=== PATIENT | male | born 1980 | race Hispanic/Latino ===

== ENCOUNTER → 2023-10-01 12:00 | Outpatient (REF) | payer OTHER, SELFPAY ==
[2023-10-01 12:39] LABS: Urine Albumin 2+ (Neg - Trace); Urine Bilirubin 1+ (Negative); Urine Character Clear (Clear); Urine Color Yellow; Urine Glucose Negative (Negative); Urine Ketone Trace (Negative); Urine Leukocyte Trace (Negative); Urine Nitrite Negative (Negative); Urine Occult Blood Negative (Negative); Urine Specific Gravity 1.015 (<1.030); Urine Urobilinogen 1+ (Neg - 1+)
[2023-10-01 12:40] LABS: % Basophils 0.5 % (0-2); % Eosinophils 2.2 % (0-6); % Immature Granulocytes 0.3 % (0-0.5); % Lymphocytes 21.6 % (20.5-51.1); % Monocytes 8.3 % (1.7-9.3); % Neutrophils 67.1 % (42.2-75.2); Absolute Eosinophils 0.1 10^3/uL (0-0.7); Absolute Lymphocytes 1.3 10^3/uL (1.2-3.4); Absolute Monocytes 0.5 10^3/uL (0.1-0.6); Hemoglobin 16.3 g/dL (13.0-18.0); Mean Corp Hgb Conc. 34.7 g/dL (33.0-37.0); Mean Corpuscular Hgb 30.4 pg (27.0-31.0); Mean Corpuscular Volume 87.5 fL (80.0-94.0); Nucleated Red Blood Cells % 0 % (-); Platelet Count 327 10^3/uL (130-400); Red Blood Cell Count 5.37 10^6/uL (4.70-6.10); Red Cell Dist. Width 12.1 % (11.5-14.5); White Blood Cell Count 5.9 10^3/uL (4.8-10.8)
[2023-10-01 12:50] LABS: Urine Mucus Few; Urine Red Blood Cell 0-2 /HPF (0-2); Urine White Cell 0-2 /HPF (0-5)
[2023-10-01 12:51] LABS: Erythrocyte Sed Rate 7 mm/hour (0-20)
[2023-10-01 13:24] LABS: ALT (SGPT) 26 U/L (0-50); AST (SGOT) 31 U/L (17-59); Albumin 3.9 g/dl (3.5-5.0); Alkaline Phosphatase 70 U/L (38-126); Blood Urea Nitrogen 22 mg/dl (9-20); Calcium 9.2 mg/dl (8.4-10.2); Carbon Dioxide 30 mmol/L (22-30); Chloride 105 mmol/L (98-107); Glucose 98 mg/dl (70-99); Potassium 4.6 mmol/L (3.5-5.1); Sodium 138 mmol/L (135-145); Total Bilirubin 0.8 mg/dl (0.2-1.3); Total Protein 6.9 g/dl (6.3-8.2); eGFR > 60.00
[2023-10-01 13:26] LABS: C-Reactive Protein < 5.00 mg/L (0.0-10.00)
[2023-10-01 13:52] LABS: Urine Protein 157 mg/dl
[2023-10-01 15:12] LABS: Protein/creatinine Ratio 0.3
[2023-10-03 00:34] LABS: Complement C3 83 mg/dl (88-165)
[2023-10-04 01:06] LABS: ds-DNA Ab, IgG Reflex To Titer 190 IU (0-24)
== END ==
LOC: CLINIC 12:00
PROVIDERS: ATTENDING PHYSICIAN Internal Medicine Rheumatology
DX: M32.9 Systemic lupus erythematosus, unspecified (principal)
CPT/HCPCS: 36415; 80053; 81003; 81015; 82570; 84156; 85025; 85652; 86140; 86160; 86225; 86256

== ENCOUNTER → 2023-12-31 07:52 | Outpatient (REF) | payer OTHER, SELFPAY ==
[2023-12-31 08:44] LABS: Urine Albumin 1+ (Neg - Trace); Urine Bilirubin Negative (Negative); Urine Character Clear (Clear); Urine Color Yellow; Urine Glucose Negative (Negative); Urine Ketone Negative (Negative); Urine Leukocyte Negative (Negative); Urine Nitrite Negative (Negative); Urine Occult Blood 1+ (Negative); Urine Specific Gravity 1.015 (<1.030); Urine Urobilinogen Negative (Neg - 1+)
[2023-12-31 08:51] LABS: % Basophils 0.4 % (0-2); % Eosinophils 2.5 % (0-6); % Immature Granulocytes 0.2 % (0-0.5); % Lymphocytes 26.5 % (20.5-51.1); % Monocytes 9.9 % (1.7-9.3); % Neutrophils 60.5 % (42.2-75.2); Absolute Eosinophils 0.1 10^3/uL (0-0.7); Absolute Lymphocytes 1.3 10^3/uL (1.2-3.4); Absolute Monocytes 0.5 10^3/uL (0.1-0.6); Absolute Neutrophils 2.9 10^3/uL (1.4-6.5); Hematocrit 45.5 % (39.0-52.0); Hemoglobin 15.6 g/dL (13.0-18.0); Mean Corp Hgb Conc. 34.3 g/dL (33.0-37.0); Mean Corpuscular Hgb 29.9 pg (27.0-31.0); Mean Corpuscular Volume 87.3 fL (80.0-94.0); Mean Platelet Volume 11.1 fL (7.4-10.4); Nucleated Red Blood Cells % 0 % (-); Platelet Count 204 10^3/uL (130-400); Red Blood Cell Count 5.21 10^6/uL (4.70-6.10); Red Cell Dist. Width 13.1 % (11.5-14.5); White Blood Cell Count 4.8 10^3/uL (4.8-10.8)
[2023-12-31 09:00] LABS: Erythrocyte Sed Rate 10 mm/hour (0-20)
[2023-12-31 09:05] LABS: ALT (SGPT) 21 U/L (0-50); AST (SGOT) 27 U/L (17-59); Albumin 3.9 g/dl (3.5-5.0); Alkaline Phosphatase 61 U/L (38-126); Blood Urea Nitrogen 25 mg/dl (9-20); Calcium 9.1 mg/dl (8.4-10.2); Carbon Dioxide 32 mmol/L (22-30); Chloride 105 mmol/L (98-107); Glucose 103 mg/dl (70-99); Potassium 4.5 mmol/L (3.5-5.1); Sodium 142 mmol/L (135-145); Total Bilirubin 0.7 mg/dl (0.2-1.3); Total Protein 6.7 g/dl (6.3-8.2); eGFR > 60.00
[2023-12-31 09:16] LABS: Urine Bacteria Few (Negative); Urine Squamous Cell 0-2 /LPF (Few)
[2023-12-31 09:17] LABS: Urine Red Blood Cell 0-2 /HPF (0-2); Urine White Cell 0-2 /HPF (0-5)
[2023-12-31 09:25] LABS: C-Reactive Protein < 5.00 mg/L (0.0-10.00)
[2023-12-31 09:41] LABS: Glycohemoglobin (HgbA1c) 5.3 % (4.0-5.6)
[2023-12-31 09:42] LABS: Vitamin D, 25-OH*** 23.2 ng/mL (30-80)
[2023-12-31 18:29] LABS: Protein/creatinine Ratio 0.5; Urine Protein 111 mg/dl
[2024-01-01 23:29] LABS: Complement C3 80 mg/dl (88-165)
== END ==
LOC: CLINIC 07:52
PROVIDERS: ATTENDING PHYSICIAN Nurse Practitioner Adult Health; FAMILY PHYSICIAN Internal Medicine Cardiovascular Disease
DX: M32.9 Systemic lupus erythematosus, unspecified (principal); E55.9 Vitamin D deficiency, unspecified; K76.0 Fatty (change of) liver, not elsewhere classified
CPT/HCPCS: 36415; 80053; 81003; 81015; 82306; 82570; 83036; 84156; 85025; 85652; 86140; 86160

== ENCOUNTER → 2024-03-31 11:44 | Outpatient (REF) | payer OTHER, SELFPAY ==
[2024-03-31 12:49] LABS: % Basophils 0.7 % (0-2); % Immature Granulocytes 0.4 % (0-0.5); % Lymphocytes 26.5 % (20.5-51.1); % Monocytes 9.6 % (1.7-9.3); % Neutrophils 60.8 % (42.2-75.2); Absolute Eosinophils 0.1 10^3/uL (0-0.7); Absolute Lymphocytes 1.2 10^3/uL (1.2-3.4); Absolute Monocytes 0.4 10^3/uL (0.1-0.6); Absolute Neutrophils 2.8 10^3/uL (1.4-6.5); Hematocrit 45.5 % (39.0-52.0); Hemoglobin 15.5 g/dL (13.0-18.0); Mean Corp Hgb Conc. 34.1 g/dL (33.0-37.0); Mean Corpuscular Hgb 29.8 pg (27.0-31.0); Mean Corpuscular Volume 87.3 fL (80.0-94.0); Nucleated Red Blood Cells % 0 % (-); Platelet Count 234 10^3/uL (130-400); Red Blood Cell Count 5.21 10^6/uL (4.70-6.10); Red Cell Dist. Width 13.2 % (11.5-14.5); White Blood Cell Count 4.6 10^3/uL (4.8-10.8)
[2024-03-31 13:21] LABS: Urine Albumin 1+ (Neg - Trace); Urine Bilirubin 1+ (Negative); Urine Character Clear (Clear); Urine Color Yellow; Urine Glucose Negative (Negative); Urine Ketone Trace (Negative); Urine Leukocyte Negative (Negative); Urine Nitrite Negative (Negative); Urine Occult Blood Negative (Negative); Urine Urobilinogen 1+ (Neg - 1+); Urine pH 6.5 (5.0-9.0)
[2024-03-31 13:29] LABS: Urine Mucus Few; Urine Squamous Cell 0-2 /LPF (Few)
[2024-03-31 13:30] LABS: Urine Bacteria Few (Negative); Urine Red Blood Cell 0-2 /HPF (0-2); Urine White Cell 0-2 /HPF (0-5)
[2024-03-31 13:35] LABS: C-Reactive Protein < 5.00 mg/L (0.0-10.00)
[2024-03-31 13:51] LABS: Vitamin D, 25-OH*** 23.7 ng/mL (30-80)
[2024-03-31 14:01] LABS: Erythrocyte Sed Rate 16 mm/hour (0-20)
[2024-03-31 15:04] LABS: Urine Protein 103 mg/dl
[2024-03-31 15:20] LABS: Protein/creatinine Ratio 0.2
[2024-03-31 15:28] LABS: ALT (SGPT) 23 U/L (0-50); AST (SGOT) 31 U/L (17-59); Albumin 4.6 g/dl (3.5-5.0); Alkaline Phosphatase 68 U/L (38-126); Blood Urea Nitrogen 20 mg/dl (9-20); Carbon Dioxide 28 mmol/L (22-30); Chloride 105 mmol/L (98-107); Glucose 95 mg/dl (70-99); Potassium 4.6 mmol/L (3.5-5.1); Sodium 143 mmol/L (135-145); Total Protein 7.2 g/dl (6.3-8.2); eGFR > 60.00
[2024-04-01 10:58] LABS: Complement C3 86 mg/dl (88-165)
== END ==
LOC: CLINIC 11:44
PROVIDERS: ATTENDING PHYSICIAN Internal Medicine Rheumatology; FAMILY PHYSICIAN Nurse Practitioner Adult Health
DX: M32.9 Systemic lupus erythematosus, unspecified (principal); E55.9 Vitamin D deficiency, unspecified; R31.9 Hematuria, unspecified
CPT/HCPCS: 36415; 80053; 81003; 81015; 82306; 82570; 84156; 85025; 85652; 86140; 86160

== ENCOUNTER → 2024-07-28 10:21 | Outpatient (REF) | payer OTHER, SELFPAY ==
[2024-07-28 11:25] LABS: Urine Albumin 2+ (Neg - Trace); Urine Bilirubin Negative (Negative); Urine Character Clear (Clear); Urine Color Yellow; Urine Glucose Negative (Negative); Urine Ketone Negative (Negative); Urine Leukocyte Negative (Negative); Urine Nitrite Negative (Negative); Urine Occult Blood 1+ (Negative); Urine Specific Gravity 1.025 (<1.030); Urine Urobilinogen Negative (Neg - 1+)
[2024-07-28 11:28] LABS: % Basophils 0.5 % (0-2); % Immature Granulocytes 0.3 % (0-0.5); % Lymphocytes 16.2 % (20.5-51.1); % Monocytes 11.1 % (1.7-9.3); % Neutrophils 68.9 % (42.2-75.2); Absolute Eosinophils 0.2 10^3/uL (0-0.7); Absolute Monocytes 0.7 10^3/uL (0.1-0.6); Absolute Neutrophils 4.3 10^3/uL (1.4-6.5); Hematocrit 45.3 % (39.0-52.0); Hemoglobin 15.4 g/dL (13.0-18.0); Mean Corpuscular Hgb 30.2 pg (27.0-31.0); Mean Corpuscular Volume 88.8 fL (80.0-94.0); Mean Platelet Volume 10.4 fL (7.4-10.4); Nucleated Red Blood Cells % 0 % (-); Platelet Count 219 10^3/uL (130-400); Red Cell Dist. Width 12.8 % (11.5-14.5); White Blood Cell Count 6.2 10^3/uL (4.8-10.8)
[2024-07-28 11:42] LABS: ALT (SGPT) 28 U/L (0-50); AST (SGOT) 33 U/L (17-59); Albumin 4.2 g/dl (3.5-5.0); Alkaline Phosphatase 64 U/L (38-126); Blood Urea Nitrogen 26 mg/dl (9-20); Calcium 8.8 mg/dl (8.4-10.2); Carbon Dioxide 30 mmol/L (22-30); Chloride 102 mmol/L (98-107); Glucose 101 mg/dl (70-99); Potassium 4.5 mmol/L (3.5-5.1); Sodium 139 mmol/L (135-145); Total Bilirubin 0.6 mg/dl (0.2-1.3); eGFR > 60.00
[2024-07-28 11:45] LABS: Urine Mucus Few
[2024-07-28 11:46] LABS: Urine Bacteria Few (Negative); Urine Red Blood Cell 0-2 /HPF (0-2); Urine Squamous Cell 0-2 /LPF (Few); Urine White Cell 0-2 /HPF (0-5)
[2024-07-28 11:58] LABS: Vitamin D, 25-OH*** 17.7 ng/mL (30-80)
[2024-07-28 12:19] LABS: Erythrocyte Sed Rate 15 mm/hour (0-20)
[2024-07-28 12:22] LABS: Protein/creatinine Ratio 1.2; Urine Protein 323 mg/dl
[2024-07-29 23:21] LABS: Complement C3 88 mg/dl (88-165)
[2024-07-31 00:31] LABS: ds-DNA Ab, IgG Reflex To Titer 137 IU (0-24)
== END ==
LOC: CLINIC 10:21
PROVIDERS: ATTENDING PHYSICIAN Nurse Practitioner Adult Health; REFERRING PHYSICIAN Internal Medicine Rheumatology
DX: E55.9 Vitamin D deficiency, unspecified (principal); M32.9 Systemic lupus erythematosus, unspecified
CPT/HCPCS: 36415; 80053; 81003; 81015; 82306; 82570; 84156; 85025; 85652; 86140; 86160; 86225

== ENCOUNTER → 2024-08-10 14:24 | Outpatient (REF) | payer OTHER, SELFPAY | LOC: CLINIC 14:24 | PROVIDERS: ATTENDING PHYSICIAN Nurse Practitioner Adult Health | DX: R31.9 Hematuria, unspecified (principal) | CPT/HCPCS: 76770 ==

== ENCOUNTER → 2024-09-28 13:37 | Outpatient (REF) | payer OTHER, SELFPAY | LOC: HWLAB 13:37 | PROVIDERS: ATTENDING PHYSICIAN Nurse Practitioner Adult Health | DX: R31.9 Hematuria, unspecified (principal) | CPT/HCPCS: 88112 ==

== ENCOUNTER → 2024-10-26 13:24 | Outpatient (REF) | payer OTHER, SELFPAY ==
[2024-10-26 15:02] LABS: Vitamin D, 25-OH*** 37.4 ng/mL (30-80)
== END ==
LOC: CLINIC 13:24
PROVIDERS: ATTENDING PHYSICIAN Nurse Practitioner Adult Health
DX: E55.9 Vitamin D deficiency, unspecified (principal); Z12.11 Encounter for screening for malignant neoplasm of colon
CPT/HCPCS: 36415; 82306; 83520

== ENCOUNTER → 2025-03-01 09:58 | Outpatient (REF) | payer OTHER, SELFPAY ==
[2025-03-01 12:53] LABS: ALT (SGPT) 29 U/L (0-50); AST (SGOT) 30 U/L (17-59); Albumin 4.2 g/dl (3.5-5.0); Alkaline Phosphatase 64 U/L (38-126); Blood Urea Nitrogen 21 mg/dl (9-20); Calcium 9.3 mg/dl (8.4-10.2); Carbon Dioxide 29 mmol/L (22-30); Chloride 105 mmol/L (98-107); Glucose 96 mg/dl (70-99); HDL Cholesterol 66 mg/dl; LDL Cholesterol, Calculated 138 mg/dl; Potassium 4.9 mmol/L (3.5-5.1); Sodium 139 mmol/L (135-145); Total Protein 7.1 g/dl (6.3-8.2); Very Low Density Lipoprotein 21 mg/dl (0-30); eGFR > 60.00
[2025-03-01 13:04] LABS: Vitamin D, 25-OH*** 38.0 ng/mL (30-80)
== END ==
LOC: CLINIC 09:58
PROVIDERS: ATTENDING PHYSICIAN Nurse Practitioner Adult Health
DX: K76.0 Fatty (change of) liver, not elsewhere classified (principal); E55.9 Vitamin D deficiency, unspecified
CPT/HCPCS: 36415; 80053; 80061; 82306